=== PATIENT | male | born 1950 | race African-American/Black ===

== ENCOUNTER 2017-04-16 11:30 | Day surgery (SDC) | payer MEDICARE ==
[~2017-04-16 11:30] MED LIST: CIPROFLOXACIN HCL 500 MG TABLET PO PRN
--- OUTSIDE RECORDS SUMMARY | 2017-04-16 11:35 | XMS REPORT | Continuity of Care Document ---
:1950 Author Organization [facility] ([facility]) Address [address] [place] [address] Phone [phone] Care Team Providers Name Role Phone Sol Mcdaniel Primary Care Provider [phone] Source Comments This disclosure is being made pursuant to the Care Everywhere program, applicable federal and state laws, and may not contain all informaitonavailable regarding this patient.[facility] ([facility]) Active Allergies and Adverse Reactions No Known Allergies Current Medications Prescription Sig. Disp. Refills Start Date End Date Status doxazosin 1 mg tablet Take 1 mg by mouth Active every evening. VERAPAMIL HCL Take 240 mg by mouth Active (VERAPAMIL PO) daily. fluticasone-salmeterol Use 1 Puff by Active (ADVAIR DISKUS) 500-50 inhalation every 12 mcg/dose inhaler hours. tadalafil (CIALIS) 10 Take 10 mg by mouth Active mg tablet as needed. 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 Melena 04/24/2011 Social History Tobacco Use Types Packs/Day Years Used Date Never Assessed Last Filed Vital Signs Vital Sign Reading Time Taken Blood Pressure 139/83 04/27/2011 8:00 AM CDT Pulse 77 04/27/2011 8:00 AM CDT Temperature 36.6 C (97.9 F) 04/27/2011 8:00 AM CDT Respiratory Rate 20 04/27/2011 8:00 AM CDT Height 1.854 m (6' 1") 04/24/2011 1:39 AM CDT Weight 98.6 kg (217 lb 6 oz) 04/26/2011 8:00 PM CDT Body Mass Index 28.69 04/26/2011 8:00 PM CDT Oxygen Saturation 98% 04/27/2011 12:00 PM CDT Plan of Care Health Maintenance Due Date Last Done Comments HCV Screening 1950 Hepatitis B Vaccine (1 of 3 - Primary Series) 1950 Tdap Vaccine 1962 Lipid Disorder Screening 1969 Td Vaccine 1969 Colonoscopy 11/03/2001 Prostate Cancer Screening 2001 Zoster Vaccine 2011 Influenza Vaccine: Seasonal (#1) 06/22/2016 Pneumococcal Vaccine (1 of 2 - PCV13) 2016 Results from Last 3 Months Not on file
[2017-04-16] MEDS ORDERED: LIDOCAINE HCL 10 APPL CARTRIDGE TP ONE (13:52)
[2017-04-16 14:56] VITALS: BP 142/88
== END 2017-04-16 11:31 | disposition home or self-care (01) ==
LOC: AMB 11:30
PROVIDERS: ATTEND Urology
PROC: 0TJB8ZZ Inspection of Bladder, Via Natural or Artificial Opening Endoscopic (ICD-10-PCS; principal; 2017-04-16 14:00)
DX: N40.1 Benign prostatic hyperplasia with lower urinary tract symptoms (principal); N13.8 Other obstructive and reflux uropathy; Z68.28 Body mass index [BMI] 28.0-28.9, adult; Z87.891 Personal history of nicotine dependence

== ENCOUNTER 2017-04-23 07:19 | Day surgery (SDC) | payer MEDICARE ==
[~2017-04-23 07:19] MED LIST changes: -CIPROFLOXACIN HCL 500 MG TABLET PO PRN; +RINGERS SOLUTION,LACTATED 1,000 ML IV PRN; +ceFAZolin SODIUM 2 GM in DEXTROSE 5 % IN WATER 50 ML IV PRN
--- OUTSIDE RECORDS SUMMARY | 2017-04-23 07:23 | XMS REPORT | Continuity of Care Document ---
:1950 Author Organization [facility] ([facility]) Address [address] [place] [address] Phone [phone] Care Team Providers Name Role Phone Sol Mcdaniel Primary Care Provider [phone] Source Comments This disclosure is being made pursuant to the Care Everywhere program, applicable federal and state laws, and may not contain all informaitonavailable regarding this patient.[facility] ([facility]) Active Allergies and Adverse Reactions No Known [...]
[2017-04-23] MEDS ORDERED: RINGERS SOLUTION,LACTATED 1,000 ML IV ONE (09:00)
[2017-04-23 11:36] VITALS: BP 118/68
== END 2017-04-23 07:20 | disposition home or self-care (01) ==
LOC: AMB 07:19
PROVIDERS: ATTEND Urology
PROC: 0VB08ZX Excision of Prostate, Via Natural or Artificial Opening Endoscopic, Diagnostic (ICD-10-PCS; principal; 2017-04-23 08:30)
DX: N40.1 Benign prostatic hyperplasia with lower urinary tract symptoms (principal); N13.8 Other obstructive and reflux uropathy; N41.1 Chronic prostatitis; Z87.891 Personal history of nicotine dependence; Z68.28 Body mass index [BMI] 28.0-28.9, adult